=== PATIENT | female | born 1940 | race Caucasian/White ===

== ENCOUNTER 2018-03-02 13:04 | Inpatient (IN) | payer OTHER ==
[~2018-03-02] VITALS: Ht 172.7 cm; Wt 76.5 kg
[2018-03-02] VITALS (21 sets, daily range): BP systolic 111–147; BP diastolic 57–82
[~2018-03-02 13:04] MED LIST: ALPR0.25 BC; ASPI81CH43 GT; ATEN1TAB38 PO; HYDR-4683 GT; LOSA25TA9 PO; NITR400A5 TL; OMEP20CA74 OR
[2018-03-02] MEDS ORDERED: LIDOCAINE 2%HCL (LOCAL ANESTH.) INJ 20ML MDV ONE (13:17)
[2018-03-02] MEDS ORDERED: IODIXANOL 320MG/ML 100ML BTL IV ONE (13:17)
[2018-03-02] MEDS ORDERED: HEPARIN SODIUM (PORCINE) 5000 UNITS/ML 1ML VIAL ONE (13:18)
[2018-03-02] MEDS ORDERED: EPINEPHrine HCL 1 MG/10 ML SYRG ONE (13:19)
[2018-03-02] MEDS ORDERED: fentaNYL CITRATE 100 MCG/2 ML VL ONE (13:19)
[2018-03-02] MEDS ORDERED: METOPROLOL TARTRATE 1MG/1ML-5ML VIAL IV ONE ×2 (13:19→13:30)
[2018-03-02] MEDS ORDERED: MIDAZOLAM HCL 1MG/1ML-2 ML VIAL ONE ×2 (13:19→14:28)
[2018-03-02] MEDS ORDERED: ATROPINE SULF 1 MG/10ml SYR ONE (13:19)
[2018-03-02] MEDS ORDERED: ANGIOMAX 250 MG VIAL IV ONE (13:19)
[2018-03-02] MEDS ORDERED: EPTIFIBATIDE DRIP(0.75MG/ML) 0 ML IV ONE (13:20)
[2018-03-02] MEDS ORDERED: EPTIFIBATIDE INJ (2MG/ML) 10ML VIAL IV ONE (13:20)
[2018-03-02] MEDS ORDERED: HYDROmorphone HCL 2 MG/ML VL ONE (13:24)
[2018-03-02] MEDS ORDERED: HYDROmorphone HCL 2 MG/ML VL IV ONE (13:30)
[2018-03-02] MEDS ORDERED: HEPARIN SODIUM (PORCINE) 5000 UNITS/ML 1ML VIAL IV ONE (13:30)
[2018-03-02] MEDS ORDERED: ONDANSETRON HCL 4 MG/2 ML VIAL IV ONE (13:30)
[2018-03-02 13:42] LABS: Hematocrit 44.9 % (36.0-46.0); Hemoglobin 15.5 g/dL (12.2-16.2); Mean Corpuscular Hemoglobin 32.4 pg (28.0-32.0); Mean Corpuscular Hgb Conc. 34.6 g/dL (32.0-36.0); Mean Corpuscular Volume 93.6 fL (80.0-100.0); Platelet Count (auto) 266 10^3/uL (140-450); Red Cell Distribution Width 13.6 % (11.8-14.3)
[2018-03-02 13:43] LABS: White Blood Cell 33.6 10^3/uL (4.4-10.8)
[2018-03-02 13:44] LABS: Basophils % (manual) 0 (0.0-2.0); Blast Cells 0; Metamyelocytes % 0; Myelocytes % 0; Promyelocytes % 0; Reactive Lymphocytes 0
[2018-03-02 13:47] LABS: INR 0.92 (0.9-1.15); Partial Thromboplastin Time 25.6 sec (23.78-33.04); Prothrombin Time 9.9 sec (9.27-12.13)
[2018-03-02 13:48] LABS: Band Neutrophils % (manual) 1; Eosinophils % (manual) 2 (0-7); Lymphocytes % (manual) 80 (10.0-50.0); Monocytes % (manual) 1 (0-12)
[2018-03-02] MEDS ORDERED: VERAPAMIL 2.5MG/ML INJ 2ML VIAL IV ONE (13:48)
[2018-03-02] MEDS ORDERED: LIDOCAINE 2% (LOCAL ANESTH.) PF 5ml SDV ONE (13:51)
[2018-03-02 13:52] LABS: Albumin 4.2 g/dL (3.4-5.0); Bilirubin, Total 0.6 mg/dL (0.2-1.0); Calcium 9.6 mg/dL (8.5-10.1); Magnesium 2.5 mg/dL (1.6-2.6); Potassium 4.1 mmol/L (3.5-5.1); Total Protein 7.7 g/dL (6.4-8.2)
[2018-03-02] MEDS ORDERED: diphenhdrAMINE HCL 50 MG/1 ML VL ONE (13:55)
[2018-03-02] MEDS ORDERED: NITROGLYCERIN 50MG/250ML 250 ML IV ONE (14:34)
[2018-03-02] MEDS ORDERED: FAMOTIDINE 20 MG TAB PO ONE (15:15)
[2018-03-02] MEDS ORDERED: NITROGLYCERIN 0.4 MG SL TAB SL PRN (15:15)
[2018-03-02] MEDS ORDERED: ZOLPIDEM TARTRATE 5 MG TAB PO PRN (15:15)
[2018-03-02] MEDS: NITROGLYCERIN 50MG/250ML 250 ML IV SCH (15:15)
[2018-03-02] MEDS ORDERED: ATORVASTATIN 20 MG TAB PO ONE (15:15)
[2018-03-02] MEDS ORDERED: MORPHINE SULFATE 8mg/ml INJ SDV IV PRN (15:15)
[2018-03-02] MEDS: HYDROcodone-ACET 5/325MG TAB PO PRN ×2 (16:30→21:11)
[2018-03-02] MEDS: CARVEDILOL 3.125 MG TAB PO SCH (22:29)
[2018-03-02 22:49] LABS: Magnesium 2.1 mg/dL (1.6-2.6); Potassium 4.5 mmol/L (3.5-5.1)
[2018-03-03] VITALS (81 sets, daily range): BP systolic 87–144; BP diastolic 44–108
[2018-03-03] MEDS: MORPHINE SULF(PF) 0.5MG/ML 10ML VIAL IV PRN ×2 (00:10→13:36)
[2018-03-03] MEDS: ONDANSETRON HCL 4 MG/2 ML VIAL IV PRN (00:10)
[2018-03-03] MEDS ORDERED: TRAZ50TA2 PO (01:46)
[2018-03-03] MEDS ORDERED: CYAN1TAB14 PO (01:46)
[2018-03-03] MEDS ORDERED: DIPH-506 OR (01:46)
[2018-03-03] MEDS ORDERED: CHOL200021 PO (01:46)
[2018-03-03] MEDS ORDERED: VENL37.588 PO (01:46)
[2018-03-03] MEDS: HYDROcodone-ACET 5/325MG TAB PO PRN ×4 (02:36→22:14)
[2018-03-03 04:04] LABS: Albumin 3.3 g/dL (3.4-5.0); BUN/Creatinine Ratio 15.6; Bilirubin, Total 0.5 mg/dL (0.2-1.0); Calcium 8.9 mg/dL (8.5-10.1)
[2018-03-03 05:44] LABS: Urine Bacteria NONE SEEN /hpf (None Seen); Urine Blood Negative /uL (Negative); Urine Specific Gravity 1.011 (1.001-1.035); Urine WBC <1 /hpf (0 - 5)
[2018-03-03] MEDS: ASPirin 81 mg TAB PO SCH (10:01)
[2018-03-03] MEDS: CLOPIDOGREL BISULFATE 75 MG TAB PO SCH (10:01)
[2018-03-03] MEDS: CARVEDILOL 3.125 MG TAB PO SCH ×2 (10:03→22:15)
[2018-03-03] MEDS: LISINOPRIL 5 MG TAB PO SCH (10:17)
[2018-03-03] MEDS: NITROGLYCERIN 50MG/250ML 250 ML IV SCH (10:17)
[2018-03-04] VITALS (41 sets, daily range): BP systolic 91–137; BP diastolic 43–81
[2018-03-04] MEDS: ONDANSETRON HCL 4 MG/2 ML VIAL IV PRN (00:09)
[2018-03-04] MEDS: LORazepam 0.5 MG TAB PO PRN (00:09)
[2018-03-04] MEDS ORDERED: MORPHINE SULF INJ 2 MG/ML SYRINGE 1ML ONE (00:18)
[2018-03-04] MEDS: MORPHINE SULF(PF) 0.5MG/ML 10ML VIAL IV PRN (00:30)
[2018-03-04 03:52] LABS: BUN/Creatinine Ratio 11.9; Calcium 8.5 mg/dL (8.5-10.1); Potassium 4.1 mmol/L (3.5-5.1)
[2018-03-04 03:56] LABS: Hematocrit 40.4 % (36.0-46.0); Hemoglobin 13.5 g/dL (12.2-16.2); Mean Corpuscular Hemoglobin 30.9 pg (28.0-32.0); Mean Corpuscular Hgb Conc. 33.3 g/dL (32.0-36.0); Mean Corpuscular Volume 92.6 fL (80.0-100.0); Platelet Count (auto) 185 10^3/uL (140-450); Red Blood Cells 4.36 10^6/uL (4.0-5.20); Red Cell Distribution Width 13.5 % (11.8-14.3); White Blood Cell 26.8 10^3/uL (4.4-10.8)
[2018-03-04 03:58] LABS: Band Neutrophils % (manual) 0; Basophils % (manual) 0 (0.0-2.0); Blast Cells 0; Metamyelocytes % 0; Myelocytes % 0; Promyelocytes % 0
[2018-03-04 05:07] LABS: Eosinophils % (manual) 1 (0-7); Lymphocytes % (manual) 43 (10.0-50.0); Monocytes % (manual) 3 (0-12); Reactive Lymphocytes 12
[2018-03-04] MEDS: HYDROcodone-ACET 5/325MG TAB PO PRN ×3 (08:23→20:57)
[2018-03-04] MEDS ORDERED: LIDOCAINE 2%HCL (LOCAL ANESTH.) INJ 20ML MDV ONE (09:55)
[2018-03-04] MEDS ORDERED: IODIXANOL 320MG/ML 100ML BTL IV ONE (09:55)
[2018-03-04] MEDS: CLOPIDOGREL BISULFATE 75 MG TAB PO SCH (10:00)
[2018-03-04] MEDS: ASPirin 81 mg TAB PO SCH (10:00)
[2018-03-04] MEDS: CARVEDILOL 3.125 MG TAB PO SCH ×2 (10:00→22:12)
[2018-03-04] MEDS: LISINOPRIL 5 MG TAB PO SCH (10:00)
[2018-03-04] MEDS ORDERED: ANGIOMAX 250 MG VIAL IV ONE ×2 (10:08→11:27)
[2018-03-04] MEDS ORDERED: fentaNYL CITRATE 100 MCG/2 ML VL ONE ×2 (10:08→11:49)
[2018-03-04] MEDS ORDERED: MIDAZOLAM HCL 1MG/1ML-2 ML VIAL ONE ×2 (10:09→11:09)
[2018-03-04] MEDS ORDERED: SODIUM CHL 0.9% 50 ML ONE ×2 (10:09→11:27)
[2018-03-04] MEDS ORDERED: EPTIFIBATIDE INJ (2MG/ML) 10ML VIAL IV ONE (10:47)
[2018-03-04] MEDS ORDERED: IOHEXOL 350 MG/ML 100ML IJ ONE ×3 (11:09→12:06)
[2018-03-04] MEDS ORDERED: LIDOCAINE 2% (LOCAL ANESTH.) PF 5ml SDV ONE ×2 (11:24→11:27)
[2018-03-04] MEDS: NITROGLYCERIN 50MG/250ML 250 ML IV SCH (19:41)
[2018-03-04] MEDS ORDERED: LACTULOSE 20Gm/30ML SOLN PO PRN (19:45)
[2018-03-05] VITALS (10 sets, daily range): BP systolic 86–120; BP diastolic 51–67
[2018-03-05] MEDS: HYDROcodone-ACET 5/325MG TAB PO PRN ×3 (07:42→22:19)
[2018-03-05] MEDS: ASPirin 81 mg TAB PO SCH (10:25)
[2018-03-05] MEDS: CLOPIDOGREL BISULFATE 75 MG TAB PO SCH (10:26)
[2018-03-05] MEDS: LISINOPRIL 5 MG TAB PO SCH (11:22)
[2018-03-05] MEDS: CARVEDILOL 3.125 MG TAB PO SCH ×2 (11:22→22:00)
[2018-03-05 12:10] LABS: Basophils # (auto) 0.1 uL; Basophils % (auto) 0.2 % (0.0-2.0); Eosinophils # (auto) 0.2 uL; Eosinophils % (auto) 0.6 % (0.0-7.0); Hematocrit 34.4 % (36.0-46.0); Hemoglobin 11.8 g/dL (12.2-16.2); Lymphocytes # (auto) 15.5 uL; Lymphocytes % (auto) 52.9 % (10.0-50.0); Mean Corpuscular Hemoglobin 32.4 pg (28.0-32.0); Mean Corpuscular Hgb Conc. 34.2 g/dL (32.0-36.0); Mean Corpuscular Volume 94.8 fL (80.0-100.0); Monocytes # (auto) 1.7 uL; Monocytes % (auto) 5.7 % (0.0-12.0); Neutrophils # (auto) 11.9 uL; Neutrophils % (auto) 40.6 % (37.0-80.0); Nucleated Red Blood Cells % 0.1 %; Platelet Count (auto) 197 10^3/uL (140-450); Red Blood Cells 3.63 10^6/uL (4.0-5.20); Red Cell Distribution Width 13.6 % (11.8-14.3); White Blood Cell 29.3 10^3/uL (4.4-10.8)
[2018-03-05 12:19] LABS: BUN/Creatinine Ratio 15.3; Bilirubin, Total 0.8 mg/dL (0.2-1.0); Calcium 8.9 mg/dL (8.5-10.1); Magnesium 2.4 mg/dL (1.6-2.6); Potassium 4.4 mmol/L (3.5-5.1); Total Protein 6.1 g/dL (6.4-8.2)
[2018-03-05] MEDS: ACETAMINOPHEN 500 MG TAB PO PRN (20:51)
[2018-03-06] MEDS: LORazepam 0.5 MG TAB PO PRN (01:38)
[2018-03-06] MEDS: ACETAMINOPHEN 500 MG TAB PO PRN (01:39)
[2018-03-06] MEDS: ONDANSETRON HCL 4 MG/2 ML VIAL IV PRN (01:39)
[2018-03-06] MEDS ORDERED: PRA25T PO (03:15)
[2018-03-06] MEDS: HYDROcodone-ACET 5/325MG TAB PO PRN ×2 (04:16→10:21)
[2018-03-06] MEDS ORDERED: PRAMIPEXOLE DIHYDROCHLORIDE MO 0.25 MG TAB PO ONE (04:45)
[2018-03-06 04:59] VITALS: BP 134/63
[2018-03-06 08:00] LABS: Hemoglobin 11.8 g/dL (12.2-16.2); Red Cell Distribution Width 13.2 % (11.8-14.3)
[2018-03-06 08:04] LABS: Hematocrit 35.5 % (36.0-46.0); Mean Corpuscular Hemoglobin 31.5 pg (28.0-32.0); Mean Corpuscular Hgb Conc. 33.2 g/dL (32.0-36.0); Platelet Count (auto) 233 10^3/uL (140-450); Red Blood Cells 3.73 10^6/uL (4.0-5.20)
[2018-03-06 08:12] LABS: Albumin 3.4 g/dL (3.4-5.0); BUN/Creatinine Ratio 13.1; Bilirubin, Total 0.8 mg/dL (0.2-1.0); Calcium 9.2 mg/dL (8.5-10.1); Potassium 4.1 mmol/L (3.5-5.1); Total Protein 6.7 g/dL (6.4-8.2)
[2018-03-06 08:19] LABS: White Blood Cell 30.1 10^3/uL (4.4-10.8)
[2018-03-06 08:20] LABS: Band Neutrophils % (manual) 0; Basophils % (manual) 0 (0.0-2.0); Blast Cells 0; Eosinophils % (manual) 0 (0-7); Metamyelocytes % 0; Myelocytes % 0; Promyelocytes % 0; Reactive Lymphocytes 0
[2018-03-06 09:24] VITALS: BP 130/62
[2018-03-06 09:32] LABS: Lymphocytes % (manual) 57 (10.0-50.0); Monocytes % (manual) 1 (0-12)
[2018-03-06] MEDS: CLOPIDOGREL BISULFATE 75 MG TAB PO SCH (10:15)
[2018-03-06] MEDS: ASPirin 81 mg TAB PO SCH (10:15)
[2018-03-06] MEDS: CARVEDILOL 3.125 MG TAB PO SCH (10:16)
[2018-03-06] MEDS: LISINOPRIL 5 MG TAB PO SCH (10:16)
[2018-03-06 13:17] VITALS: BP 117/57
[2018-03-06] MEDS ORDERED: PRAMIPEXOLE DIHYDROCHLORIDE MO 0.25 MG TAB PO SCH (22:00)
== END 2018-03-06 14:05 | disposition home or self-care (01) | DRG 246 ==
LOC: EDBD 13:04 → ER 13:05 → CATH 13:06 → ICU WEST 13:07 → DOU IN ICU 03-04 21:08 → TELE-CENTR 03-05 15:34
PROVIDERS: ADMIT Internal Medicine; ATTEND Internal Medicine
PROC: 4A023N7 Measurement of Cardiac Sampling and Pressure, Left Heart, Percutaneous Approach (ICD-10-PCS; principal; 2018-03-02)
PROC: B2111ZZ Fluoroscopy of Multiple Coronary Arteries using Low Osmolar Contrast (ICD-10-PCS; 2018-03-02)
PROC: B2121ZZ Fluoroscopy of Single Coronary Artery Bypass Graft using Low Osmolar Contrast (ICD-10-PCS; 2018-03-02)
PROC: B2151ZZ Fluoroscopy of Left Heart using Low Osmolar Contrast (ICD-10-PCS; 2018-03-02)
PROC: B41D1ZZ Fluoroscopy of Aorta and Bilateral Lower Extremity Arteries using Low Osmolar Contrast (ICD-10-PCS; 2018-03-02)
PROC: 027035Z Dilation of Coronary Artery, One Artery with Two Drug-eluting Intraluminal Devices, Percutaneous Approach (ICD-10-PCS; 2018-03-04)
PROC: 047C3DZ Dilation of Right Common Iliac Artery with Intraluminal Device, Percutaneous Approach (ICD-10-PCS; 2018-03-04)
DX: I21.3 ST elevation (STEMI) myocardial infarction of unspecified site (principal); I50.21 Acute systolic (congestive) heart failure; C91.10 Chronic lymphocytic leukemia of B-cell type not having achieved remission; I25.810 Atherosclerosis of coronary artery bypass graft(s) without angina pectoris; I42.9 Cardiomyopathy, unspecified; I74.5 Embolism and thrombosis of iliac artery; R65.10 Systemic inflammatory response syndrome (SIRS) of non-infectious origin without acute organ dysfunction; E78.5 Hyperlipidemia, unspecified; I11.0 Hypertensive heart disease with heart failure; I73.9 Peripheral vascular disease, unspecified; I25.82 Chronic total occlusion of coronary artery; K21.9 Gastro-esophageal reflux disease without esophagitis; F32.9 Major depressive disorder, single episode, unspecified; F41.9 Anxiety disorder, unspecified; G89.29 Other chronic pain; M54.9 Dorsalgia, unspecified; Z90.710 Acquired absence of both cervix and uterus; Z95.5 Presence of coronary angioplasty implant and graft; Z79.899 Other long term (current) drug therapy; Z90.722 Acquired absence of ovaries, bilateral; Z91.040 Latex allergy status; Z88.1 Allergy status to other antibiotic agents
CPT/HCPCS: 36415; 37221; 71045; 80048; 80053; 80061; 81001; 82565; 82962; 83036; 83735; 83880; 84132; 84484; 85007; 85025; 85027; 85379; 85610; 85730; 87081; 92928; 93005; 93306; 93458; 93926; 94761; 96374; 96375; 99152; 99153; C1874; J2250; J2405; Q9967

== ENCOUNTER 2021-12-12 17:22 | Inpatient (IN) | payer OTHER ==
[~2021-12-12] VITALS: Ht 154.9 cm; Wt 77.9 kg
[~2021-12-12 17:22] MED LIST changes: -ALPR0.25 BC; -ATEN1TAB38 PO; +CHOL200021 PO; +CYAN1TAB14 PO; +DIPH-506 OR; -HYDR-4683 GT; +HYDR-4833 GT; -LOSA25TA9 PO; -OMEP20CA74 OR; +PRAM0.252 PO; +TRAZ50TA2 PO; +VENL37.588 PO
[2021-12-12 17:56] LABS: Hematocrit 40.3 % (36.0-46.0); Hemoglobin 13.4 g/dL (12.2-16.2); Mean Corpuscular Hemoglobin 31.6 pg (28.0-32.0); Mean Corpuscular Hgb Conc. 33.2 g/dL (32.0-36.0); Mean Corpuscular Volume 95.1 fL (80.0-100.0); Red Blood Cells 4.24 10^6/uL (4.0-5.20); Red Cell Distribution Width 14.6 % (11.8-14.3); White Blood Cell 20.8 10^3/uL (4.4-10.8)
[2021-12-12 18:03] LABS: Band Neutrophils % (manual) 0; Basophils % (manual) 0 (0.0-2.0); Blast Cells 0; Eosinophils % (manual) 0 (0-7); Metamyelocytes % 0; Myelocytes % 0; Promyelocytes % 0; Reactive Lymphocytes 0
[2021-12-12 18:14] LABS: Albumin 3.6 g/dL (3.4-5.0); BUN/Creatinine Ratio 24.5; Magnesium 2.6 mg/dL (1.6-2.6); Potassium 4.2 mmol/L (3.5-5.1)
[2021-12-12 18:19] LABS: Bilirubin, Total 1.1 mg/dL (0.2-1.0); Total Protein 6.4 g/dL (6.4-8.2)
[2021-12-12 19:43] LABS: Lymphocytes % (manual) 59 (10.0-50.0); Monocytes % (manual) 6 (0-12)
[2021-12-12 20:00] VITALS: BP 120/46
[2021-12-12] MEDS ORDERED: FUROSEMIDE 40 MG/4 ML VIAL IV ONE (21:00)
[2021-12-12] MEDS ORDERED: IPRATROPIUM BROM 0.5 MG/2.5ML INH SOL HHN ONE (21:00)
[2021-12-12] MEDS ORDERED: ENOXAPARIN SOD 100 MG/1 ML SYRINGE SC ONE (21:00)
[2021-12-12] MEDS ORDERED: ALBUTEROL SULF 2.5 MG/0.5ML(0.5%) NEB SOLN HHN ONE (21:00)
[2021-12-12] MEDS ORDERED: methylPREDNISolone SOD SUCC 125 MG/2 ML VL IV ONE (21:00)
[2021-12-12] MEDS ORDERED: ACETAMINOPHEN 325 MG TAB PO PRN (21:15)
[2021-12-12] MEDS ORDERED: HYDROcodone-ACET 5/325MG TAB PO PRN (21:15)
[2021-12-12] MEDS ORDERED: DOCUSATE SOD 100 MG CAP PO PRN (21:15)
[2021-12-12] MEDS ORDERED: MORPHINE SULFATE INJECTION 2 MG/ML SYRG IV PRN (21:30)
[2021-12-12] MEDS ORDERED: NITROGLYCERIN 0.4 MG SL TAB SL PRN (21:30)
[2021-12-12] MEDS ORDERED: ALBUTEROL SULF HFA 90MCG INH 200DOSE IN SCH (22:00)
[2021-12-12] MEDS: HEPARIN SODIUM (PORCINE) 5000 UNITS/ML 1ML VIAL SC SCH (22:00)
[2021-12-12] MEDS ORDERED: FAMOTIDINE (10MG/ML) 2ML VL IV SCH (22:00)
[2021-12-12] MEDS: ASCORBIC ACID 500 MG TAB PO SCH (22:37)
[2021-12-12] MEDS: SODIUM CHLOR 0.9% PF (SALINE LOCK) 10ML VIAL/SYR IV SCH (22:37)
[2021-12-13] MEDS ORDERED: FLUT1SPR5 (01:01)
[2021-12-13] MEDS ORDERED: VENL75CA78 PO (01:01)
[2021-12-13] MEDS ORDERED: CARV6.2551 PO (01:01)
[2021-12-13] MEDS ORDERED: [UNRECOGNIZED DRUG - OTHER] (01:01)
[2021-12-13] MEDS ORDERED: FUR20T PO (01:01)
[2021-12-13] MEDS ORDERED: COEN400C8 OR (01:01)
[2021-12-13] MEDS ORDERED: CICL160A2 INH (01:01)
[2021-12-13] MEDS ORDERED: MONT-8 PO (01:01)
[2021-12-13] MEDS ORDERED: ATE50T PO (01:01)
[2021-12-13] MEDS ORDERED: RISE1TAB8 PO (01:01)
[2021-12-13 01:06] VITALS: BP 137/60
[2021-12-13] MEDS: methylPREDNISolone SOD SUCC 40 MG/ML VL IV SCH ×5 (01:32→23:21)
[2021-12-13] MEDS ORDERED: MULT1TAB65 PO (01:47)
[2021-12-13] MEDS ORDERED: MAGN400C3 PO (01:47)
[2021-12-13] MEDS ORDERED: levoFLOXacin 500MG 100 ML IV ONE (02:00)
[2021-12-13] MEDS: ALBUTEROL SULF 2.5 MG/0.5ML(0.5%) NEB SOLN NEB PRN ×4 (04:05→22:44)
[2021-12-13] MEDS: IPRATROPIUM BROM 0.5 MG/2.5ML INH SOL NEB PRN ×4 (04:05→22:44)
[2021-12-13] MEDS ORDERED: LORazepam 0.5 MG TAB PO ONE (05:00)
[2021-12-13] MEDS ORDERED: ALPRAZolam 0.25 MG TAB PO ONE (05:15)
[2021-12-13 05:28] VITALS: BP 137/76
[2021-12-13 06:02] LABS: Hematocrit 43.3 % (36.0-46.0); Hemoglobin 14.5 g/dL (12.2-16.2); Mean Corpuscular Hemoglobin 31.9 pg (28.0-32.0); Mean Corpuscular Hgb Conc. 33.6 g/dL (32.0-36.0); Red Blood Cells 4.55 10^6/uL (4.0-5.20); Red Cell Distribution Width 14.6 % (11.8-14.3); White Blood Cell 23.8 10^3/uL (4.4-10.8)
[2021-12-13 06:09] LABS: Basophils % (manual) 0 (0.0-2.0); Blast Cells 0; Eosinophils % (manual) 0 (0-7); Metamyelocytes % 0; Myelocytes % 0; Promyelocytes % 0; Reactive Lymphocytes 0
[2021-12-13 06:10] LABS: Potassium 4.2 mmol/L (3.5-5.1)
[2021-12-13 06:14] LABS: Albumin 3.7 g/dL (3.4-5.0); BUN/Creatinine Ratio 20.8
[2021-12-13 06:16] LABS: Total Protein 6.5 g/dL (6.4-8.2)
[2021-12-13 06:51] LABS: Band Neutrophils % (manual) 1; Lymphocytes % (manual) 54 (10.0-50.0)
[2021-12-13 06:52] LABS: Monocytes % (manual) 1 (0-12)
[2021-12-13] MEDS: SODIUM CHLOR 0.9% PF (SALINE LOCK) 10ML VIAL/SYR IV SCH ×3 (06:52→23:19)
[2021-12-13] MEDS: BUDESONIDE (INHALATION) 0.5 MG/2 ML NEB NEB SCH ×2 (07:47→22:44)
[2021-12-13 09:00] VITALS: BP 117/69
[2021-12-13] MEDS ORDERED: FUROSEMIDE 40 MG/4 ML VIAL IV SCH (10:00)
[2021-12-13] MEDS: FLUTICASONE PROP NASAL SPR 0.05 % (50MCG) 16GM EACHNOSTRI SCH ×2 (10:00→22:00)
[2021-12-13] MEDS: ASCORBIC ACID 500 MG TAB PO SCH ×2 (10:07→22:00)
[2021-12-13] MEDS: ASPirin 81 mg TAB PO SCH (10:08)
[2021-12-13] MEDS: ZINC SULFATE 220mg CAP or TAB PO SCH (10:08)
[2021-12-13] MEDS: MULTIPLE VITAMIN TAB PO SCH (10:08)
[2021-12-13] MEDS: HEPARIN SODIUM (PORCINE) 5000 UNITS/ML 1ML VIAL SC SCH ×2 (10:09→22:25)
[2021-12-13] MEDS: MORPHINE SULFATE INJECTION 2 MG/ML SYRG IV PRN ×3 (10:24→23:10)
[2021-12-13] MEDS ORDERED: VANCOMYCIN PER PHARMACY 0 MG IV SCH (11:45)
[2021-12-13] MEDS ORDERED: ATENOLOL 50 MG TAB PO ONE (12:15)
[2021-12-13] MEDS ORDERED: MAGNESIUM OXIDE 400 MG TAB PO ONE (12:15)
[2021-12-13 13:00] VITALS: BP 128/71
[2021-12-13] MEDS ORDERED: PRAMIPEXOLE DIHYDROCHLORIDE MO 0.25 MG TAB PO SCH (13:00)
[2021-12-13] MEDS: VANCOMYCIN 1GM/250ML 250 ML IV SCH (13:11)
[2021-12-13] MEDS ORDERED: PRAMIPEXOLE DIHYDROCHLORIDE MO 0.25 MG TAB PO ONE (13:15)
[2021-12-13 16:47] VITALS: BP 147/69
[2021-12-13] MEDS: levoFLOXacin 750MG 150 ML IV SCH (17:24)
[2021-12-13] MEDS: SUCRALFATE 1 GM/10 ML ORAL SUSP PO SCH ×2 (17:25→22:25)
[2021-12-13] MEDS: FUROSEMIDE 40 MG/4 ML VIAL IV SCH (18:24)
[2021-12-13] MEDS: ONDANSETRON HCL 4 MG/2 ML VIAL IV PRN ×2 (18:25→23:11)
[2021-12-13 22:00] VITALS: BP 127/71
[2021-12-13] MEDS ORDERED: levoFLOXacin 500MG 100 ML IV SCH (22:00)
[2021-12-13] MEDS: PANTOPRAZOLE 40 MG TAB PO SCH (22:25)
[2021-12-13] MEDS: PRAMIPEXOLE DIHYDROCHLORIDE MO 0.25 MG TAB PO SCH (22:25)
[2021-12-13] MEDS: VENLAFAXINE HCL 37.5MG TABLET PO SCH (22:25)
[2021-12-13] MEDS: traZODone HCL 50 MG TAB PO SCH (22:25)
[2021-12-14 05:00] VITALS: BP 129/75
[2021-12-14 06:00] LABS: Hematocrit 39.3 % (36.0-46.0); Hemoglobin 13.1 g/dL (12.2-16.2); Mean Corpuscular Hemoglobin 31.5 pg (28.0-32.0); Mean Corpuscular Hgb Conc. 33.4 g/dL (32.0-36.0); Mean Corpuscular Volume 94.3 fL (80.0-100.0); Red Blood Cells 4.17 10^6/uL (4.0-5.20); Red Cell Distribution Width 14.3 % (11.8-14.3); White Blood Cell 24.4 10^3/uL (4.4-10.8)
[2021-12-14] MEDS: FUROSEMIDE 40 MG/4 ML VIAL IV SCH ×2 (06:04→18:43)
[2021-12-14] MEDS: SODIUM CHLOR 0.9% PF (SALINE LOCK) 10ML VIAL/SYR IV SCH ×3 (06:05→22:29)
[2021-12-14] MEDS: methylPREDNISolone SOD SUCC 40 MG/ML VL IV SCH ×4 (06:05→23:26)
[2021-12-14] MEDS: SUCRALFATE 1 GM/10 ML ORAL SUSP PO SCH ×4 (06:05→22:29)
[2021-12-14 06:21] LABS: INR 1.75 (0.9-1.15)
[2021-12-14 06:59] LABS: Basophils % (manual) 0 (0.0-2.0); Blast Cells 0; Eosinophils % (manual) 0 (0-7); Metamyelocytes % 0; Myelocytes % 0; Promyelocytes % 0; Reactive Lymphocytes 0
[2021-12-14 08:14] LABS: Band Neutrophils % (manual) 7; Lymphocytes % (manual) 56 (10.0-50.0); Monocytes % (manual) 1 (0-12)
[2021-12-14] MEDS: FLUTICASONE PROP NASAL SPR 0.05 % (50MCG) 16GM EACHNOSTRI SCH ×2 (09:46→22:00)
[2021-12-14] MEDS: ASPirin 81 mg TAB PO SCH (10:05)
[2021-12-14] MEDS: VENLAFAXINE HCL 37.5MG TABLET PO SCH ×2 (10:05→22:29)
[2021-12-14] MEDS: ZINC SULFATE 220mg CAP or TAB PO SCH (10:05)
[2021-12-14] MEDS: MULTIPLE VITAMIN TAB PO SCH (10:06)
[2021-12-14] MEDS: PANTOPRAZOLE 40 MG TAB PO SCH ×2 (10:06→22:30)
[2021-12-14] MEDS: ASCORBIC ACID 500 MG TAB PO SCH ×2 (10:06→22:30)
[2021-12-14] MEDS: MAGNESIUM OXIDE 400 MG TAB PO SCH (10:06)
[2021-12-14] MEDS: SPIRONOLACTONE 25 MG TAB PO SCH (10:06)
[2021-12-14] MEDS: LOSARTAN POTASSIUM 25 MG TAB PO SCH (10:22)
[2021-12-14] MEDS: HEPARIN SODIUM (PORCINE) 5000 UNITS/ML 1ML VIAL SC SCH ×2 (10:23→22:31)
[2021-12-14] MEDS: BUDESONIDE (INHALATION) 0.5 MG/2 ML NEB NEB SCH ×2 (10:48→22:35)
[2021-12-14] MEDS: VANCOMYCIN 1GM/250ML 250 ML IV SCH (11:55)
[2021-12-14 22:00] VITALS: BP 114/69
[2021-12-14] MEDS: traZODone HCL 50 MG TAB PO SCH (22:29)
[2021-12-14] MEDS: PRAMIPEXOLE DIHYDROCHLORIDE MO 0.25 MG TAB PO SCH (22:30)
[2021-12-14] MEDS: ALBUTEROL SULF 2.5 MG/0.5ML(0.5%) NEB SOLN NEB PRN (22:34)
[2021-12-14] MEDS: IPRATROPIUM BROM 0.5 MG/2.5ML INH SOL NEB PRN (22:35)
[2021-12-15 04:57] VITALS: BP 131/73
[2021-12-15 05:43] LABS: Hemoglobin 13.1 g/dL (12.2-16.2); Mean Corpuscular Hemoglobin 31.8 pg (28.0-32.0); Mean Corpuscular Hgb Conc. 33.6 g/dL (32.0-36.0); Mean Corpuscular Volume 94.7 fL (80.0-100.0); Red Blood Cells 4.11 10^6/uL (4.0-5.20); Red Cell Distribution Width 14.5 % (11.8-14.3); White Blood Cell 29.3 10^3/uL (4.4-10.8)
[2021-12-15 05:47] LABS: Band Neutrophils % (manual) 0; Basophils % (manual) 0 (0.0-2.0); Blast Cells 0; Eosinophils % (manual) 0 (0-7); Metamyelocytes % 0; Monocytes % (manual) 0 (0-12); Myelocytes % 0; Promyelocytes % 0; Reactive Lymphocytes 0
[2021-12-15] MEDS: SODIUM CHLOR 0.9% PF (SALINE LOCK) 10ML VIAL/SYR IV SCH ×3 (06:08→23:21)
[2021-12-15] MEDS: FUROSEMIDE 40 MG/4 ML VIAL IV SCH ×2 (06:08→18:23)
[2021-12-15] MEDS: methylPREDNISolone SOD SUCC 40 MG/ML VL IV SCH ×4 (06:08→23:19)
[2021-12-15] MEDS: SUCRALFATE 1 GM/10 ML ORAL SUSP PO SCH ×4 (06:09→23:20)
[2021-12-15 06:17] LABS: Albumin 3.4 g/dL (3.4-5.0); BUN/Creatinine Ratio 24.1; Calcium 8.8 mg/dL (8.5-10.1); Potassium 3.7 mmol/L (3.5-5.1)
[2021-12-15 06:20] LABS: Bilirubin, Total 1.3 mg/dL (0.2-1.0)
[2021-12-15] MEDS: ALBUTEROL SULF 2.5 MG/0.5ML(0.5%) NEB SOLN NEB PRN ×2 (06:38→22:00)
[2021-12-15] MEDS: BUDESONIDE (INHALATION) 0.5 MG/2 ML NEB NEB SCH ×2 (06:38→22:00)
[2021-12-15] MEDS: IPRATROPIUM BROM 0.5 MG/2.5ML INH SOL NEB PRN ×2 (06:38→22:00)
[2021-12-15] MEDS: MORPHINE SULFATE INJECTION 2 MG/ML SYRG IV PRN (06:58)
[2021-12-15] MEDS: ONDANSETRON HCL 4 MG/2 ML VIAL IV PRN (06:59)
[2021-12-15 08:06] LABS: Lymphocytes % (manual) 47 (10.0-50.0)
[2021-12-15 08:32] VITALS: BP 118/76
[2021-12-15] MEDS: HEPARIN SODIUM (PORCINE) 5000 UNITS/ML 1ML VIAL SC SCH ×2 (10:00→23:22)
[2021-12-15] MEDS: LOSARTAN POTASSIUM 25 MG TAB PO SCH (10:36)
[2021-12-15] MEDS: VENLAFAXINE HCL 37.5MG TABLET PO SCH ×2 (10:37→23:20)
[2021-12-15] MEDS: ASCORBIC ACID 500 MG TAB PO SCH ×2 (10:38→23:20)
[2021-12-15] MEDS: MULTIPLE VITAMIN TAB PO SCH (10:38)
[2021-12-15] MEDS: SPIRONOLACTONE 25 MG TAB PO SCH (10:38)
[2021-12-15] MEDS: ASPirin 81 mg TAB PO SCH (10:38)
[2021-12-15] MEDS: PANTOPRAZOLE 40 MG TAB PO SCH ×2 (10:38→23:20)
[2021-12-15] MEDS: ZINC SULFATE 220mg CAP or TAB PO SCH (10:39)
[2021-12-15] MEDS: MAGNESIUM OXIDE 400 MG TAB PO SCH (10:39)
[2021-12-15] MEDS: FLUTICASONE PROP NASAL SPR 0.05 % (50MCG) 16GM EACHNOSTRI SCH ×2 (10:41→22:00)
[2021-12-15 10:42] LABS: Hepatitis B Surface Antibody Negative (Negative)
[2021-12-15 11:15] LABS: Hepatitis A Total Antibody Negative (Negative)
[2021-12-15] MEDS: VANCOMYCIN 1GM/250ML 250 ML IV SCH (12:26)
[2021-12-15 12:30] VITALS: BP 132/73
[2021-12-15 12:39] LABS: Hepatitis A Ab IgM Negative
[2021-12-15 12:40] LABS: Hepatitis B Core IgM Negative; Hepatitis C Antibody Negative (Negative)
[2021-12-15] MEDS ORDERED: LIDOCAINE 2%HCL (LOCAL ANESTH.) INJ 10ml MDV ONE ×3 (12:54→13:34)
[2021-12-15] MEDS ORDERED: IOHEXOL 350 MG/ML 100ML IJ ONE (12:54)
[2021-12-15] MEDS ORDERED: ANGIOMAX 250 MG VIAL IV ONE (12:57)
[2021-12-15] MEDS ORDERED: MIDAZOLAM HCL 2MG/2ML 2ml VIAL (1mg/ml) ONE (12:57)
[2021-12-15] MEDS ORDERED: fentaNYL CITRATE 100 MCG/2 ML VL ONE (12:57)
[2021-12-15] MEDS ORDERED: SODIUM CHL 0.9% 0 ML ONE (12:58)
[2021-12-15] MEDS ORDERED: VERAPAMIL 2.5MG/ML INJ 2ML VIAL IV ONE (13:36)
[2021-12-15] MEDS ORDERED: HEPARIN SODIUM (PORCINE) 5000 UNITS/ML 1ML VIAL ONE (13:36)
[2021-12-15] MEDS ORDERED: HEPARIN 1,000 UNITS/ml 1ML VIAL ONE (13:49)
[2021-12-15 15:45] VITALS: BP 101/75
[2021-12-15] MEDS: levoFLOXacin 750MG 150 ML IV SCH (18:20)
[2021-12-15 22:00] VITALS: BP 122/66
[2021-12-15] MEDS: traZODone HCL 50 MG TAB PO SCH (23:20)
[2021-12-15] MEDS: PRAMIPEXOLE DIHYDROCHLORIDE MO 0.25 MG TAB PO SCH (23:21)
[2021-12-16] MEDS: MORPHINE SULFATE INJECTION 2 MG/ML SYRG IV PRN (00:18)
[2021-12-16] MEDS: ONDANSETRON HCL 4 MG/2 ML VIAL IV PRN (00:18)
[2021-12-16 00:45] VITALS: BP 122/66
[2021-12-16 05:00] VITALS: BP 125/62
[2021-12-16] MEDS: ALBUTEROL SULF 2.5 MG/0.5ML(0.5%) NEB SOLN NEB PRN ×2 (06:07→18:24)
[2021-12-16] MEDS: IPRATROPIUM BROM 0.5 MG/2.5ML INH SOL NEB PRN ×2 (06:07→18:24)
[2021-12-16] MEDS: BUDESONIDE (INHALATION) 0.5 MG/2 ML NEB NEB SCH ×2 (06:07→18:24)
[2021-12-16] MEDS: FUROSEMIDE 40 MG/4 ML VIAL IV SCH ×2 (06:07→17:57)
[2021-12-16] MEDS: SODIUM CHLOR 0.9% PF (SALINE LOCK) 10ML VIAL/SYR IV SCH ×3 (06:08→22:12)
[2021-12-16] MEDS: SUCRALFATE 1 GM/10 ML ORAL SUSP PO SCH ×3 (06:09→17:56)
[2021-12-16] MEDS: methylPREDNISolone SOD SUCC 40 MG/ML VL IV SCH (06:09)
[2021-12-16 09:00] VITALS: BP 105/75
[2021-12-16] MEDS: VENLAFAXINE HCL 37.5MG TABLET PO SCH ×2 (09:53→22:11)
[2021-12-16] MEDS: LOSARTAN POTASSIUM 25 MG TAB PO SCH (09:54)
[2021-12-16] MEDS: predniSONE 20 MG TAB PO SCH (09:54)
[2021-12-16] MEDS: ZINC SULFATE 220mg CAP or TAB PO SCH (09:55)
[2021-12-16] MEDS: PANTOPRAZOLE 40 MG TAB PO SCH ×2 (09:55→22:10)
[2021-12-16] MEDS: ASCORBIC ACID 500 MG TAB PO SCH ×2 (09:55→22:11)
[2021-12-16] MEDS: MAGNESIUM OXIDE 400 MG TAB PO SCH (09:55)
[2021-12-16] MEDS: SPIRONOLACTONE 25 MG TAB PO SCH (09:55)
[2021-12-16] MEDS: MULTIPLE VITAMIN TAB PO SCH (09:55)
[2021-12-16] MEDS: ASPirin 81 mg TAB PO SCH (09:56)
[2021-12-16] MEDS: HEPARIN SODIUM (PORCINE) 5000 UNITS/ML 1ML VIAL SC SCH ×2 (09:57→22:11)
[2021-12-16] MEDS: FLUTICASONE PROP NASAL SPR 0.05 % (50MCG) 16GM EACHNOSTRI SCH ×3 (09:58→22:12)
[2021-12-16] MEDS: VANCOMYCIN 1GM/250ML 250 ML IV SCH (11:43)
[2021-12-16] MEDS ORDERED: EZ PAQUE SUSP 12OZ BTL ONE (12:32)
[2021-12-16 13:04] VITALS: BP 93/64
[2021-12-16 17:09] VITALS: BP 101/61
[2021-12-16 22:00] VITALS: BP 89/59
[2021-12-16] MEDS: traZODone HCL 50 MG TAB PO SCH (22:10)
[2021-12-16] MEDS: PRAMIPEXOLE DIHYDROCHLORIDE MO 0.25 MG TAB PO SCH (22:11)
[2021-12-17] MEDS: VANCOMYCIN 1GM/250ML 250 ML IV SCH ×2 (04:19→20:10)
[2021-12-17 05:00] VITALS: BP 116/64
[2021-12-17 05:43] LABS: Hematocrit 37.8 % (36.0-46.0); Hemoglobin 12.6 g/dL (12.2-16.2); Mean Corpuscular Hemoglobin 31.4 pg (28.0-32.0); Mean Corpuscular Hgb Conc. 33.5 g/dL (32.0-36.0); Mean Corpuscular Volume 93.9 fL (80.0-100.0); Red Blood Cells 4.02 10^6/uL (4.0-5.20); Red Cell Distribution Width 14.4 % (11.8-14.3); White Blood Cell 23.2 10^3/uL (4.4-10.8)
[2021-12-17] MEDS: BUDESONIDE (INHALATION) 0.5 MG/2 ML NEB NEB SCH ×2 (05:54→19:47)
[2021-12-17] MEDS: ALBUTEROL SULF 2.5 MG/0.5ML(0.5%) NEB SOLN NEB PRN ×2 (05:55→19:47)
[2021-12-17] MEDS: IPRATROPIUM BROM 0.5 MG/2.5ML INH SOL NEB PRN ×2 (05:55→19:47)
[2021-12-17 06:01] LABS: Potassium 3.1 mmol/L (3.5-5.1)
[2021-12-17] MEDS: FUROSEMIDE 40 MG/4 ML VIAL IV SCH ×2 (06:04→18:30)
[2021-12-17] MEDS: SODIUM CHLOR 0.9% PF (SALINE LOCK) 10ML VIAL/SYR IV SCH ×3 (06:05→22:22)
[2021-12-17 06:11] LABS: BUN/Creatinine Ratio 25.7; Calcium 8.6 mg/dL (8.5-10.1)
[2021-12-17 06:13] LABS: Band Neutrophils % (manual) 0; Basophils % (manual) 0 (0.0-2.0); Blast Cells 0; Eosinophils % (manual) 0 (0-7); Metamyelocytes % 0; Myelocytes % 0; Promyelocytes % 0; Reactive Lymphocytes 0
[2021-12-17] MEDS: SUCRALFATE 1 GM/10 ML ORAL SUSP PO SCH ×2 (06:52→17:31)
[2021-12-17 07:37] LABS: Lymphocytes % (manual) 44 (10.0-50.0); Monocytes % (manual) 6 (0-12)
[2021-12-17] MEDS: predniSONE 20 MG TAB PO SCH (08:32)
[2021-12-17] MEDS: ZINC SULFATE 220mg CAP or TAB PO SCH (08:32)
[2021-12-17] MEDS: MULTIPLE VITAMIN TAB PO SCH (08:32)
[2021-12-17] MEDS: MAGNESIUM OXIDE 400 MG TAB PO SCH (08:32)
[2021-12-17] MEDS: ASCORBIC ACID 500 MG TAB PO SCH ×2 (08:33→22:21)
[2021-12-17] MEDS: PANTOPRAZOLE 40 MG TAB PO SCH ×2 (08:33→22:21)
[2021-12-17] MEDS: SPIRONOLACTONE 25 MG TAB PO SCH (08:34)
[2021-12-17] MEDS: ASPirin 81 mg TAB PO SCH (08:34)
[2021-12-17] MEDS: LOSARTAN POTASSIUM 25 MG TAB PO SCH (08:34)
[2021-12-17] MEDS: VENLAFAXINE HCL 37.5MG TABLET PO SCH ×2 (08:34→22:19)
[2021-12-17] MEDS: HEPARIN SODIUM (PORCINE) 5000 UNITS/ML 1ML VIAL SC SCH ×2 (08:35→22:22)
[2021-12-17 09:05] VITALS: BP 136/67
[2021-12-17] MEDS: FLUTICASONE PROP NASAL SPR 0.05 % (50MCG) 16GM EACHNOSTRI SCH ×2 (10:00→22:00)
[2021-12-17] MEDS ORDERED: LIDOCAINE VISCOUS 2% 15ML UD ONE (12:47)
[2021-12-17] MEDS ORDERED: diphenhdrAMINE HCL 50 MG/1 ML VL ONE (12:47)
[2021-12-17] MEDS ORDERED: SODIUM CHLORIDE LOCK 10 ML ONE (12:47)
[2021-12-17 14:00] VITALS: BP 115/65
[2021-12-17] MEDS: fentaNYL CITRATE 100 MCG/2 ML VL ONE ×2 (16:10→16:18)
[2021-12-17] MEDS: MIDAZOLAM HCL 5 MG/ML-1ML VIAL ONE ×2 (16:10→16:13)
[2021-12-17 17:00] VITALS: BP 112/59
[2021-12-17] MEDS: levoFLOXacin 750MG 150 ML IV SCH (17:31)
[2021-12-17] MEDS ORDERED: POTASSIUM CHL 20 Meq TABLET PO ONE (17:45)
[2021-12-17 22:00] VITALS: BP 115/66
[2021-12-17] MEDS: traZODone HCL 50 MG TAB PO SCH (22:20)
[2021-12-17] MEDS: PRAMIPEXOLE DIHYDROCHLORIDE MO 0.25 MG TAB PO SCH (22:21)
[2021-12-18 05:00] VITALS: BP 107/74
[2021-12-18] MEDS: SODIUM CHLOR 0.9% PF (SALINE LOCK) 10ML VIAL/SYR IV SCH ×2 (06:05→15:45)
[2021-12-18] MEDS: FUROSEMIDE 40 MG/4 ML VIAL IV SCH (06:05)
[2021-12-18] MEDS: SUCRALFATE 1 GM/10 ML ORAL SUSP PO SCH (06:38)
[2021-12-18] MEDS: ZINC SULFATE 220mg CAP or TAB PO SCH (08:21)
[2021-12-18] MEDS: ASPirin 81 mg TAB PO SCH (08:21)
[2021-12-18] MEDS: predniSONE 20 MG TAB PO SCH (08:22)
[2021-12-18] MEDS: PANTOPRAZOLE 40 MG TAB PO SCH (08:22)
[2021-12-18] MEDS: MULTIPLE VITAMIN TAB PO SCH (08:22)
[2021-12-18] MEDS: MAGNESIUM OXIDE 400 MG TAB PO SCH ×2 (08:22→08:26)
[2021-12-18] MEDS: VENLAFAXINE HCL 37.5MG TABLET PO SCH (08:22)
[2021-12-18] MEDS: SPIRONOLACTONE 25 MG TAB PO SCH (08:23)
[2021-12-18] MEDS: LOSARTAN POTASSIUM 25 MG TAB PO SCH (08:23)
[2021-12-18] MEDS: ASCORBIC ACID 500 MG TAB PO SCH (08:26)
[2021-12-18 09:00] VITALS: BP 127/72
[2021-12-18] MEDS: BUDESONIDE (INHALATION) 0.5 MG/2 ML NEB NEB SCH (09:44)
[2021-12-18] MEDS: HEPARIN SODIUM (PORCINE) 5000 UNITS/ML 1ML VIAL SC SCH (09:45)
[2021-12-18] MEDS ORDERED: SUCR1TAB22 PO (09:53)
[2021-12-18] MEDS ORDERED: PANT40T PO (09:53)
[2021-12-18] MEDS: FLUTICASONE PROP NASAL SPR 0.05 % (50MCG) 16GM EACHNOSTRI SCH (10:00)
[2021-12-18] MEDS ORDERED: POTASSIUM CHL 20 Meq TABLET PO SCH (10:00)
[2021-12-18] MEDS: VANCOMYCIN 1GM/250ML 250 ML IV SCH (12:00)
[2021-12-18 13:00] VITALS: BP 85/55
== END 2021-12-18 16:52 | disposition home or self-care (01) | DRG 871 ==
LOC: ER 17:22 → EDBD 17:22 → TELE 21:25 → TELE-EAST 23:32
PROVIDERS: ADMIT Nurse Practitioner Family; ATTEND Family Medicine
PROC: B2111ZZ Fluoroscopy of Multiple Coronary Arteries using Low Osmolar Contrast (ICD-10-PCS; principal; 2021-12-15)
PROC: 0DB98ZX Excision of Duodenum, Via Natural or Artificial Opening Endoscopic, Diagnostic (ICD-10-PCS; 2021-12-17)
PROC: 0DB68ZX Excision of Stomach, Via Natural or Artificial Opening Endoscopic, Diagnostic (ICD-10-PCS; 2021-12-17)
DX: A41.9 Sepsis, unspecified organism (principal); I21.4 Non-ST elevation (NSTEMI) myocardial infarction; I50.43 Acute on chronic combined systolic (congestive) and diastolic (congestive) heart failure; R65.21 Severe sepsis with septic shock; J96.21 Acute and chronic respiratory failure with hypoxia; J44.1 Chronic obstructive pulmonary disease with (acute) exacerbation; J98.11 Atelectasis; C91.11 Chronic lymphocytic leukemia of B-cell type in remission; E66.9 Obesity, unspecified; K76.0 Fatty (change of) liver, not elsewhere classified; I27.20 Pulmonary hypertension, unspecified; E78.00 Pure hypercholesterolemia, unspecified; K29.70 Gastritis, unspecified, without bleeding; K44.9 Diaphragmatic hernia without obstruction or gangrene; Z20.822 Contact with and (suspected) exposure to COVID-19; F32.A Depression, unspecified; K21.9 Gastro-esophageal reflux disease without esophagitis; I11.0 Hypertensive heart disease with heart failure; R13.12 Dysphagia, oropharyngeal phase; R79.89 Other specified abnormal findings of blood chemistry; E78.5 Hyperlipidemia, unspecified; R13.10 Dysphagia, unspecified; I25.10 Atherosclerotic heart disease of native coronary artery without angina pectoris; F41.9 Anxiety disorder, unspecified; Z88.0 Allergy status to penicillin; Z88.2 Allergy status to sulfonamides; Z68.34 Body mass index [BMI] 34.0-34.9, adult; Z98.61 Coronary angioplasty status; I25.2 Old myocardial infarction; Z79.82 Long term (current) use of aspirin; Z79.51 Long term (current) use of inhaled steroids; Z80.41 Family history of malignant neoplasm of ovary; Z80.3 Family history of malignant neoplasm of breast; Z85.3 Personal history of malignant neoplasm of breast; Z85.43 Personal history of malignant neoplasm of ovary; Z90.710 Acquired absence of both cervix and uterus; Z95.1 Presence of aortocoronary bypass graft
CPT/HCPCS: 36415; 43239; 71045; 76705; 80048; 80053; 80074; 80202; 82565; 82728; 83036; 83615; 83735; 83880; 84484; 85007; 85027; 85610; 86038; 86704; 86706; 86708; 86803; 86850; 86900; 86901; 87040; 87340; 93005; 93306; 93454; 94640; 96372; 96374; 96375; 99152; 99153; 99291; G0378; J1956; J2001; J2250; J2405; J3490

== ENCOUNTER 2022-01-12 13:24 | Emergency (ER) | payer OTHER ==
[~2022-01-12] VITALS: Ht 165.1 cm; Wt 84.8 kg
[~2022-01-12 13:24] MED LIST changes: +ATE50T PO; +CARV6.2551 PO; +CICL160A2 INH; +COEN400C8 OR; +FLUT1SPR5; +FUR20T PO; +MAGN400C3 PO; +MONT-8 PO; +MULT1TAB65 PO; +PANT40T PO; +RISE1TAB8 PO; +SUCR1TAB22 PO; +VENL75CA78 PO; +[UNRECOGNIZED DRUG - OTHER]
[2022-01-12 14:14] LABS: Basophils # (auto) 0.1 10 ^3/uL (0-0.2); Basophils % (auto) 0.7 % (0.0-2.0); Eosinophils # (auto) 0.1 10 ^3/uL (0-0.8); Eosinophils % (auto) 0.5 % (0.0-7.0); Hematocrit 44.2 % (36.0-46.0); Hemoglobin 14.3 g/dL (12.2-16.2); Lymphocytes # (auto) 10.8 10 ^3/uL (0.4-5.4); Mean Corpuscular Hemoglobin 30.5 pg (28.0-32.0); Mean Corpuscular Hgb Conc. 32.2 g/dL (32.0-36.0); Mean Corpuscular Volume 94.6 fL (80.0-100.0); Monocytes % (auto) 6.1 % (0.0-12.0); Neutrophils # (auto) 4.4 10 ^3/uL (1.6-8.6); Neutrophils % (auto) 26.8 % (37.0-80.0); Nucleated Red Blood Cells % 0.3 %; Red Blood Cells 4.67 10^6/uL (4.0-5.20); White Blood Cell 16.4 10^3/uL (4.4-10.8)
[2022-01-12 14:24] LABS: Lymphocytes % (auto) 65.9 % (10.0-50.0)
[2022-01-12 14:31] LABS: Calcium 9.5 mg/dL (8.5-10.1); Potassium 4.9 mmol/L (3.5-5.1)
[2022-01-12 14:35] LABS: Albumin 3.5 g/dL (3.4-5.0); BUN/Creatinine Ratio 20.4; Magnesium 2.4 mg/dL (1.6-2.6)
[2022-01-12 14:38] LABS: Bilirubin, Total 1.5 mg/dL (0.2-1.0); Total Protein 6.2 g/dL (6.4-8.2)
[2022-01-12 17:41] LABS: Urine Bacteria FEW /hpf (None Seen); Urine Blood 1+ /uL (Negative); Urine WBC 73 /hpf (0 - 5)
[2022-01-12 17:42] LABS: Urine Specific Gravity > 1.055 (1.001-1.035)
[2022-01-12] MEDS ORDERED: FUROSEMIDE 40 MG/4 ML VIAL IV ONE (18:00)
[2022-01-12] MEDS ORDERED: HYDROcodone-ACET 5/325MG TAB PO ONE (18:45)
[2022-01-13 02:14] VITALS: BP 121/60
== END 2022-01-13 02:43 | disposition short-term general hospital (02) ==
LOC: ER 13:24 → EDBD 13:24 → ER 01-13 02:43
DX: I50.33 Acute on chronic diastolic (congestive) heart failure (principal); J45.909 Unspecified asthma, uncomplicated; K21.9 Gastro-esophageal reflux disease without esophagitis; E78.5 Hyperlipidemia, unspecified; D72.829 Elevated white blood cell count, unspecified; I48.91 Unspecified atrial fibrillation; R79.1 Abnormal coagulation profile; Z90.710 Acquired absence of both cervix and uterus; Z20.822 Contact with and (suspected) exposure to COVID-19
CPT/HCPCS: 36415; 71045; 71275; 80053; 81001; 83735; 83880; 84484; 85025; 85379; 87426; 93005; 96374; 99291; J1940